=== PATIENT | male | born 1980 | race Two or more races ===

== ENCOUNTER 2024-10-25 01:55 | Emergency (ER) | payer MEDICAID, SELFPAY ==
[2024-10-25 02:08] VITALS: BP 141/95; PULSE 69; RESP 19; TEMP 36.3; O2SAT 99
--- NOTE | 2024-10-25 02:17 | PD.EDDENTL ---
ED Dental RME/HPI General Chief complaint: Dental/Oral/Throat Stated complaint: LEFT SIDE DENTAL PAIN Time Seen by Provider: 10/25/24 02:11 Source: patient Arrival date/time: 10/25/24 01:55 44-year-old male past medical history of recreational drug abuse presents emergency department complaining of left lower first molar pain since yesterday. Patient reports has not made appointment with dentist yet but plans to. Patient denies any fever, chills, sore throat, ear pain, vomiting, cough, or any other associated symptom. Mode of arrival: ambulatory Limitations: no limitations Related Data Previous Rx's ?Medication ?Instructions ?Recorded amoxicillin 875 mg-potassium 1 tab PO Q12H #14 tabs 08/19/19 clavulanate 125 mg tablet (Augmentin) ibuprofen 800 mg tablet 800 mg PO Q6H PRN pain #10 tabs 08/19/19 lorazepam 0.5 mg tablet (Ativan) 0.5 mg PO QDAY #10 tabs 08/01/21 lorazepam 1 mg tablet (Ativan) 1 mg PO QHSPRN PRN agitation/sleep 08/08/22 #10 tabs lorazepam 1 mg tablet (Ativan) 1 mg PO BID PRN agitation #10 tabs 12/10/22 IBU 800 mg tablet (ibuprofen) 800 mg PO Q6H PRN pain #30 tabs 07/20/23 pseudoephedrine HCl 30 mg tablet 30 mg PO Q12HR #14 tabs 07/20/23 (Sudafed) amoxicillin 875 mg-potassium 1 tab PO BID #14 tabs 12/25/23 clavulanate 125 mg tablet ibuprofen 800 mg tablet 800 mg PO TID PRN pain #20 tabs 12/25/23 diazepam 5 mg tablet (Valium) 5 mg PO BID PRN anxiety #7 tabs 04/02/24 hydroxyzine HCl 25 mg tablet 25 mg PO TID PRN anxiety #20 tabs 04/05/24 acetaminophen 500 mg capsule 500 mg PO Q6H PRN pain #30 caps 10/25/24 amoxicillin 875 mg-potassium 1 tab PO BID 7 days #14 tabs 10/25/24 clavulanate 125 mg tablet ibuprofen 800 mg tablet 800 mg PO TID PRN fever or pain 10/25/24 #30 tabs Allergies Allergy/AdvReac Type Severity Reaction Status Date / Time No Known Allergies Allergy Unknown Verified 04/05/24 00:08 Review of Systems Review of Systems Systems Reviewed: All systems reviewed, normal except as documented Constitutional Constitutional: Reports system reviewed and no additional complaints, except as documented, Denies body ache(s), Denies chills and Denies fever(s) Eyes Eyes: Reports system reviewed and no additional complaints, except as documented and Denies change in vision ENT Ears, Nose, Mouth, and Throat: Reports system reviewed and no additional complaints, except as documented, Denies disequilibrium, Denies dizziness, Reports mouth pain, Denies sore throat, Denies vertigo and Reports other (Dental pain) Cardiovascular Cardiovascular: Reports system reviewed and no additional complaints, except as documented, Denies chest pain and Denies dyspnea Respiratory Respiratory: Reports system reviewed and no additional complaints, except as documented, Denies chest congestion, Denies cough and Denies dyspnea Gastrointestinal Gastrointestinal: Reports system reviewed and no additional complaints, except as documented, Denies abdominal pain, Denies nausea and Denies vomiting Musculoskeletal Musculoskeletal: Reports system reviewed and no additional complaints, except as documented, Denies abnormal gait and Denies arthralgias Integumentary/Breasts Skin/Breast: Reports system reviewed and no additional complaints, except as documented, Denies erythema, Denies rash and Denies wounds Neurologic Neurologic: Reports system reviewed and no additional complaints, except as documented, Denies abnormal gait, Denies disequilibrium, Denies dizziness and Denies vertigo Past Medical History Past Medical History NEUROLOGIC: Negative Neurological Disorders CARDIAC: Negative Cardiac Disorders or Congestive Heart Failure RESPIRATORY: Negative Chronic Obstructive Pulmonary Disease (COPD) GASTROINTESTINAL: Positive Gastrointestinal Disorders and Gastroesophageal Reflux Disease GENITOURINARY: Negative Genitourinary Disorders or Renal Disease MUSCULOSKELETAL: Negative Musculoskeletal Disorders ENDOCRINE: Negative Endocrine Disorders, Diabetes Mellitus Type 1 or Diabetes Mellitus Type 2 HEMATOLOGIC: Negative Blood Disorders Social History SMOKING STATUS: Current every day smoker ED Exam General Limitations: Present no limitations General appearance: Present alert and in no apparent distress Head Head exam: Present atraumatic Eye Eye exam: Present normal appearance, PERRL and EOMI ENT ENT exam: Present normal exam, normal oropharynx and mucous membranes moist Expanded ENT Exam Teeth exam: Present dental caries and gingival swelling Teeth numbered:  1. Other (Dental caries with gingival swelling) Throat exam: Absent tonsillar erythema or tonsillomegaly Neck Neck exam: Present normal inspection, full ROM and trachea midline Chest Chest inspection: Present normal inspection and symmetric chest wall rise Respiratory Respiratory exam: Present normal lung sounds bilaterally Cardiovascular Cardiovascular exam: Present regular rate, normal rhythm and normal heart sounds Abdominal Exam Abdominal exam: Present soft and normal bowel sounds Extremities Exam Extremities exam: Present normal inspection and full ROM Back Exam Back exam: Present normal inspection and full ROM Neurological Exam Neurological exam: Present alert, oriented X3 and CN II-XII intact Psychiatric Psychiatric exam: Present normal affect and normal mood Skin Skin exam: Present warm, dry, intact and normal color Course Quality Measures none Orders Category Date Time Status HYDROcodone*/APAP 5/325 [[place] 5/325] Med 10/25/24 02:17 Discontinued 1 tab PO X1 ONE Ketorolac Inj [Toradol Inj] Med 10/25/24 02:17 Discontinued 30 mg IM X1 ONE Vital Signs Vital signs: Vital Signs Temperature 97.3 F 10/25/24 02:08 Pulse Rate 69 10/25/24 02:08 Respiratory Rate 19 10/25/24 02:08 Blood Pressure 141/95 H 10/25/24 02:08 Pulse Oximetry (%) 99 10/25/24 02:08 Oxygen Delivery Method Room Air 10/25/24 02:08 99% room air within normal limits Dental / Oral MDM Narrative MDM Narrative:: 44-year-old male past medical history of recreational drug abuse presents emergency department complaining of left lower first molar pain since yesterday. Patient reports has not made appointment with dentist yet but plans to. Patient denies any fever, chills, sore throat, ear pain, vomiting, cough, or any other associated symptom. Left lower first molar appears infected with localized gingival swelling patient has dental carry and reports has not seen a dentist in 6 months. Patient appears nontoxic and is hemodynamic stable. Patient given pain medication and discharged on oral antibiotics and instructed to follow-up with dentist within a week. Patient data External records reviewed:: [facility] previous records Clinical information provided by:: patient Social determinants that could affect healthcare access:: substance use Patient has the following chronic illnesses:: See chart How is presenting disease/condition affected by chronic disease/condition?: uneffected by Evaluation data The following diagnostics were reviewed and interpreted by me:: other (specify) (None) Lab and/or radiology exams considered but not ordered:: N/A Interpretation Summary: N/A Medications / Prescriptions Medications or Prescriptions considered but not ordered:: Ordered Medication administrations:: Medication Administration History Discontinued Medications Hydrocodone Bitart/Acetaminophen (Hydrocodone/[place] 5/325 Tablet) 1 tab PO X1 ONE Stop: 10/25/24 02:18 Last Admin: 10/25/24 02:24 Dose: 1 tab Documented By: ALEAH Ketorolac Tromethamine (Ketorolac Inj 60 Mg/2 Ml Vial) 30 mg IM X1 ONE Stop: 10/25/24 02:18 Last Admin: 10/25/24 02:25 Dose: 30 mg Documented By: ALEAH Given Consultations Consultation(s) initiated? (list below): No Diagnosis Dental Differential Diagnosis: gingival abscess, dental caries, toothache, dental abscess, fracture of tooth and aphthous ulcer Most likely diagnosis given after review of the tests above:: Infected tooth Admission Indicated Admission indicated?: not indicated Admission Request Was there a request for admission?: No Disposition Plan Disposition Plan: Discharge Discharge Attestation Discharge Attestation: The patient and all family members were given an opportunity to ask questions and understood the discharge instructions. Discharge instructions specifically effects, indications for sooner follow up or return to the emergency department, and the expected course of current diagnosis. Patient condition: Stable Discharge Plan Plan Patient Disposition: HOME (Self Care) Disposition Comment: Stable Prescriptions/Referrals Prescriptions/Med Rec: New acetaminophen 500 mg capsule 500 mg PO Q6H PRN (Reason: pain) Qty: 30 0RF amoxicillin-pot clavulanate 875-125 mg tablet 1 tab PO BID 7 Days Qty: 14 0RF ibuprofen 800 mg tablet 800 mg PO TID PRN (Reason: fever or pain) Qty: 30 0RF No Action lorazepam [Ativan] 0.5 mg tablet 0.5 mg PO QDAY Qty: 10 0RF amoxicillin-pot clavulanate [Augmentin] 875-125 mg tablet 1 tab PO Q12H Qty: 14 0RF ibuprofen 800 mg tablet 800 mg PO Q6H PRN (Reason: pain) Qty: 10 0RF hydroxyzine HCl 25 mg tablet 25 mg PO TID PRN (Reason: anxiety) Qty: 20 0RF lorazepam [Ativan] 1 mg tablet 1 mg PO QHSPRN PRN (Reason: agitation/sleep) Qty: 10 0RF lorazepam [Ativan] 1 mg tablet 1 mg PO BID PRN (Reason: agitation) Qty: 10 0RF pseudoephedrine HCl [Sudafed] 30 mg tablet 30 mg PO Q12HR Qty: 14 0RF ibuprofen [IBU] 800 mg tablet 800 mg PO Q6H PRN (Reason: pain) Qty: 30 0RF amoxicillin-pot clavulanate 875-125 mg tablet 1 tab PO BID Qty: 14 0RF ibuprofen 800 mg tablet 800 mg PO TID PRN (Reason: pain) Qty: 20 0RF diazepam [Valium] 5 mg tablet 5 mg PO BID MDD 2 PRN (Reason: anxiety) Qty: 7 0RF Problem List Clinical Impression: Infected tooth Patient/Caregiver Discharge Instructions Discharge Activity: activity as tolerated Education Materials: ED Dental Abscess Additional Instructions: Drink plenty of fluids and stay hydrated. Take ibuprofen or Tylenol as needed for pain. Take antibiotics as prescribed. Make follow-up appointment with dentist within 1 week. Follow-up with your primary care provider as well. Return to emergency department for any worsening symptoms or as needed. Print Language: Chinese Stand Alone Forms: [employer] Award Info., Patient Portal Info Letter PA/EMBEDDED ENGINEER Supervising Physician PA/EMBEDDED ENGINEER Supervising Physician: Dr. Cabral
[2024-10-25] MEDS: HYDROcodone/APAP 5/325 TABLET 1 TAB PO (02:24)
[2024-10-25] MEDS: KETOROLAC INJ 60 MG/2 ML VIAL 30 MG IM (02:25)
--- NOTE | 2024-10-25 03:38 | PC.NURSE ---
PT SEEN WALKING OUT OF ER LOBBY AND LEAVING BY STAFF
== END 2024-10-25 03:39 | disposition home or self-care (01) ==
PROVIDERS: Emergency Provider Emergency Medicine
DX: K04.7 Periapical abscess without sinus (principal); F17.200 Nicotine dependence, unspecified, uncomplicated
CPT/HCPCS: 96372; 99283; J1885; A9270

== ENCOUNTER 2025-01-30 21:20 | Emergency (ER) | payer MEDICAID, SELFPAY ==
[2025-01-30 21:21] VITALS: BMI 29.9
[2025-01-30 21:45] VITALS: BP 151/92; PULSE 102; RESP 18; TEMP 37.2; O2SAT 151
--- NOTE | 2025-01-30 22:02 | EDNOTE_ITS ---
ED Psych RME/HPI General Chief Complaint: Depression Stated Complaint: depression Time Seen by Provider: 01/30/25 22:05 Arrival date/time: 01/30/25 21:20 RME / HPI RME / HPI Narrative: This section includes all my notes and documentations, including HPI, PE, and ED course. Galo Us MD HPI: 44 y/o male with Hx of Chronic Methamphetamine use presents with racing thoughts x 2 days. Patient was in a recovery program for 3 months, then once released, began using methamphetamine again over the last 2 days. Denies self-harm or suicidal ideation. Denies visual or auditory ideation. Patient is requesting medication to aid with sleep or stress. No thoughts of hurting other people. No other complaints. ROS: All negative except as documented in HPI. Physical Exam: General: Alert and oriented. Appears anxious. Eyes: Conjunctivae and lids clear. ENT: No nasal congestion. Neck: Supple. Heart: RRR. Lungs: No respiratory distress. Good air movement. No rhonchi, wheezing, rales. Abdomen: Soft and nontender. Skin: Warm and dry. Neuro: Alert and oriented X 3. At this point, diagnoses include: Acute anxiety. Prescribe short course of Xanax and recommended more outpatient care. Based on my best medical judgment, made decision no further evaluation or treatment indicated at this time. Patient understands and agrees to the discharge instructions customized and printed, see below. Discharge Instructions from Dr. Us: 1. As you requested, Xanax was prescribed to help with your anxiety and racing thoughts. 2. You don't meet the criteria for emergency prison in psychiatric unit agai nst your will.? Because you have no thoughts of hurting yourself or others.? And there are no signs of psychosis (loss of touch with reality) which can potentially be harmful to you and others. 3. See a private doctor on 01/31/2025 for recheck and further care. Ask to help you stay healthy both physically and mentally.? And help to receive all services available to you, including referral to see mental health specialists. And ask for help to quit all drugs. 4. Seek immediate medical care (you can call 911 any time) with thoughts of hurting yourself or with any concerns. Galo Us MD Related Data Previous Rx's ?Medication ?Instructions ?Recorded amoxicillin 875 mg-potassium 1 tab PO Q12H #14 tabs clavulanate 125 mg tablet (Augmentin) ibuprofen 800 mg tablet 800 mg PO Q6H PRN pain #10 t abs 08/19/19 lorazepam 0.5 mg tablet (Ativan) 0.5 mg PO QDAY #10 ta bs 08/01/21 lorazepam 1 mg tablet (Ativan) 1 mg PO QHSPRN PRN agit ation/sleep 08/08/22 #10 tabs lorazepam 1 mg tablet (Ativan) 1 mg PO BID PRN agitati on #10 tabs 12/10/22 IBU 800 mg tablet (ibuprofen) 800 mg PO Q6H PRN pain # 30 tabs 07/20/23 pseudoephedrine HCl 30 mg tablet 30 mg PO Q12HR #14 ta bs 07/20/23 (Sudafed) amoxicillin 875 mg-potassium 1 tab PO BID #14 tabs 10/18 clavulanate 125 mg tablet ibuprofen 800 mg tablet 800 mg PO TID PRN pain #20 t abs 12/25/23 diazepam 5 mg tablet (Valium) 5 mg PO BID PRN anxiety #7 tabs 04/02/24 hydroxyzine HCl 25 mg tablet 25 mg PO TID PRN anxiety #20 tabs 04/05/24 acetaminophen 500 mg capsule 500 mg PO Q6H PRN pain #3 0 caps 10/25/24 ibuprofen 800 mg tablet 800 mg PO TID PRN fever or p ain 10/25/24 #30 tabs alprazolam 0.5 mg tablet (Xanax) 0.5 mg PO BID PRN anx iety #10 tabs 01/30/25 Allergies Allergy/AdvReac Type Severity Reaction Status Date / Time No Known Allergies Allergy Unknown Verified 04/05/24 00:08 Review of Systems Review of Systems Systems Reviewed: All systems reviewed, normal except as documented Past Medical History Past Medical History GASTROINTESTINAL: Positive Gastrointestinal Disorders and Gastroesophageal Reflux Disease Social History SMOKING STATUS: Light (< 1 pack/day) SUBSTANCE USE: methamphetamine 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 Us. Provider Notation: Although this document has been carefully reviewed, there may still be some phonetic and other typographical errors.? These errors are purely grammatical due to imperfections in the software program and should not be construed in any way to? compromise the substance of the patient's medical care during this visit. 44 y/o male with Hx of Chronic Methamphetamine use presents with racing thoughts x 2 days. Patient was in a recovery program for 3 months, then once released, began using methamphetamine again over the last 2 day. Denies self-harm or suicidal ideation. Denies visual or auditory ideation. Patient is requesting medication to aid with sleep or stress. No other complaints. Patient data External records reviewed:: [facility] previous records (Prior ED records reviewed from 10/25/24. Patient was seen for Infected tooth.) Clinical information provided by:: patient Social determinants that could affect healthcare access:: substance use (Methamphetamine) Patient has the following chronic illnesses:: GERD How is presenting disease/condition affected by chronic disease/condition?: uneffected by Evaluation data The following diagnostics were reviewed and interpreted by me:: other (specify) (N/A) Lab and/or radiology exams considered but not ordered:: None Interpretation Summary: N/A Medications / Prescriptions Medications or Prescriptions considered but not ordered:: None Medication administrations:: N/A Consultations Consultation(s) initiated? (list below): No Diagnosis Psych Differential Diagnosis: acute psychosis, suicidal ideation, bipolar disorder, depression, drug-induced psychotic disorder and acute anxiety Most likely diagnosis given after review of the tests above:: Acute anxiety Admission Indicated Admission indicated?: not indicated Explain why admission is indicated or not indicated:: Without severe condition, there is no indication for admission. Admission Request Was there a request for admission?: No Disposition Plan Disposition Plan: Discharge Discharge Attestation Discharge Attestation: The patient and all family members were given an opportunity to ask questions and understood the discharge instructions. Discharge instructions specifically effects, indications for sooner follow up or return to the emergency department, and the expected course of current diagnosis. Patient condition: Stable Discharge Plan Plan Patient Disposition: HOME (Self Care) Prescriptions/Referrals Prescriptions/Med Rec: New alprazolam [Xanax] 0.5 mg tablet 0.5 mg PO BID PRN (Reason: anxiety) Qty: 10 0RF No Action lorazepam [Ativan] 0.5 mg tablet 0.5 mg PO QDAY Qty: 10 0RF amoxicillin-pot clavulanate [Augmentin] 875-125 mg tablet 1 tab PO Q12H Qty: 14 0RF ibuprofen 800 mg tablet 800 mg PO Q6H PRN (Reason: pain) Qty: 10 0RF hydroxyzine HCl 25 mg tablet 25 mg PO TID PRN (Reason: anxiety) Qty: 20 0RF acetaminophen 500 mg capsule 500 mg PO Q6H PRN (Reason: pain) Qty: 30 0RF ibuprofen 800 mg tablet 800 mg PO TID PRN (Reason: fever or pain) Qty: 30 0RF lorazepam [Ativan] 1 mg tablet 1 mg PO QHSPRN PRN (Reason: agitation/sleep) Qty: 10 0RF lorazepam [Ativan] 1 mg tablet 1 mg PO BID PRN (Reason: agitation) Qty: 10 0RF pseudoephedrine HCl [Sudafed] 30 mg tablet 30 mg PO Q12HR Qty: 14 0RF ibuprofen [IBU] 800 mg tablet 800 mg PO Q6H PRN (Reason: pain) Qty: 30 0RF amoxicillin-pot clavulanate 875-125 mg tablet 1 tab PO BID Qty: 14 0RF ibuprofen 800 mg tablet 800 mg PO TID PRN (Reason: pain) Qty: 20 0RF diazepam [Valium] 5 mg tablet 5 mg PO BID MDD 2 PRN (Reason: anxiety) Qty: 7 0RF Problem List Clinical Impression: Acute anxiety Patient/Caregiver Discharge Instructions Discharge Activity: activity as tolerated Education Materials: ED Anxiety Reaction, ED Drug Abuse Additional Instructions: Discharge Instructions from Dr. Us: 1. As you requested, Xanax was prescribed to help with your anxiety and racing thoughts. 2. You don't meet the criteria for emergency prison in psychiatric unit against your will.? Because you have no thoughts of hurting yourself or others.? And there are no signs of psychosis (loss of touch with reality) which can potentially be harmful to you and others. 3. See a private doctor on 01/31/2025 for recheck and further care. Ask to help you stay healthy both physically and mentally.? And help to receive all services available to you, including referral to see mental health specialists. And ask for help to quit all drugs. 4. Seek immediate medical care (you can call 911 any time) with thoughts of hurting yourself or with any concerns. Print Language: Tajik Stand Alone Forms: [employer] Award Info., Patient Portal Info Letter
== END 2025-01-30 22:13 | disposition home or self-care (01) ==
PROVIDERS: Emergency Provider Emergency Medicine
DX: F41.9 Anxiety disorder, unspecified (principal)
CPT/HCPCS: 99281

== ENCOUNTER 2025-02-04 07:26 | Emergency (ER) | payer MEDICAID, SELFPAY ==
[2025-02-04 07:36] VITALS: BP 128/83; PULSE 88; RESP 16; TEMP 36.7; O2SAT 99; BMI 29.1
--- NOTE | 2025-02-04 07:42 | EDNOTE_ITS ---
ED Dental RME/HPI General Chief complaint: Dental/Oral/Throat Stated complaint: GUM SWELLING Time Seen by Provider: 02/04/25 07:34 Source: patient Arrival date/time: 02/04/25 07:26 This is a case of a 44-year-old male who came in in the emergency room due to left lower dental pain for 2 days patient states that worsening of the symptoms this he decided to start consult here in the emergency room no drooling of saliva patient is able to open and close his mouth Limitations: no limitations Related Data Previous Rx's ?Medication ?Instructions ?Recorded amoxicillin 875 mg-potassium 1 tab PO Q12H #14 tabs clavulanate 125 mg tablet (Augmentin) ibuprofen 800 mg tablet 800 mg PO Q6H PRN pain #10 t abs 08/19/19 lorazepam 0.5 mg tablet (Ativan) 0.5 mg PO QDAY #10 ta bs 08/01/21 lorazepam 1 mg tablet (Ativan) 1 mg PO QHSPRN PRN agit ation/sleep 08/08/22 #10 tabs lorazepam 1 mg tablet (Ativan) 1 mg PO BID PRN agitati on #10 tabs 12/10/22 IBU 800 mg tablet (ibuprofen) 800 mg PO Q6H PRN pain # 30 tabs 07/20/23 pseudoephedrine HCl 30 mg tablet 30 mg PO Q12HR #14 ta bs 07/20/23 (Sudafed) amoxicillin 875 mg-potassium 1 tab PO BID #14 tabs 10/18 clavulanate 125 mg tablet ibuprofen 800 mg tablet 800 mg PO TID PRN pain #20 t abs 12/25/23 diazepam 5 mg tablet (Valium) 5 mg PO BID PRN anxiety #7 tabs 04/02/24 hydroxyzine HCl 25 mg tablet 25 mg PO TID PRN anxiety #20 tabs 04/05/24 acetaminophen 500 mg capsule 500 mg PO Q6H PRN pain #3 0 caps 10/25/24 ibuprofen 800 mg tablet 800 mg PO TID PRN fever or p ain 10/25/24 #30 tabs alprazolam 0.5 mg tablet (Xanax) 0.5 mg PO BID PRN anx iety #10 tabs 01/30/25 clindamycin HCl 300 mg capsule 300 mg PO Q6H 10 days # 40 caps 02/04/25 hydrocodone 5 mg-acetaminophen 325 1 tab PO Q6H PRN pa in #10 tabs 02/04/25 mg tablet Allergies Allergy/AdvReac Type Severity Reaction Status Date / Time No Known Allergies Allergy Unknown Verified 04/05/24 00:08 Review of Systems Review of Systems Systems Reviewed: All systems reviewed, normal except as documented Constitutional Constitutional: Reports system reviewed and no additional complaints, except as documented, Denies chills, Denies fever(s) and Denies headache(s) ENT Ears, Nose, Mouth, and Throat: Reports system reviewed and no additional complaints, except as documented, Reports as per HPI, Denies bleeding gums, Denies change in voice, Reports dental pain, Denies dizziness, Denies dry mouth, Denies dysphagia, Denies ear discharge, Denies otalgia, Denies epistaxis, Denies facial pain, Denies headache(s), Denies hoarseness, Denies lip swelling, Denies mouth lesions, Denies nasal discharge, Denies nasal obstruction, Denies neck pain, Denies nose pain, Denies odynophagia, Denies post nasal drip, Denies sore throat, Denies throat swelling and Denies tongue swelling Cardiovascular Cardiovascular: Reports system reviewed and no additional complaints, except as documented Respiratory Respiratory: Reports system reviewed and no additional complaints, except as documented Gastrointestinal Gastrointestinal: Reports system reviewed and no additional complaints, except as documented, Denies dysphagia and Denies odynophagia Musculoskeletal Musculoskeletal: Reports system reviewed and no additional complaints, except as documented and Denies neck pain Neurologic Neurologic: Reports system reviewed and no additional complaints, except as documented, Denies dizziness and Denies headache(s) Allergic/Immunologic Allergic/Immunologic: Denies lip swelling, Denies throat swelling and Denies tongue swelling Past Medical History Past Medical History NEUROLOGIC: Negative Neurological Disorders CARDIAC: Negative Cardiac Disorders or Congestive Heart Failure RESPIRATORY: Negative Chronic Obstructive Pulmonary Disease (COPD) GASTROINTESTINAL: Positive Gastrointestinal Disorders and Gastroesophageal Reflux Disease GENITOURINARY: Negative Genitourinary Disorders or Renal Disease MUSCULOSKELETAL: Negative Musculoskeletal Disorders ENDOCRINE: Negative Endocrine Disorders, Diabetes Mellitus Type 1 or Diabetes Mellitus Type 2 HEMATOLOGIC: Negative Blood Disorders Social History SMOKING STATUS: Never smoker SUBSTANCE USE: methamphetamine ED Exam General Limitations: Present no limitations General appearance: Present alert and in no apparent distress Head Head exam: Present atraumatic, normocephalic and normal inspection Eye Eye exam: Present normal appearance, PERRL and EOMI ENT ENT exam: Present normal exam, normal oropharynx and mucous membranes moist Expanded ENT Exam Teeth numbered: 2 1. Dental Tenderness (Noted a missing tooth with swelling gum tenderness on palpation no fluctuance nonindurated) 2. Fractured (Fractured tooth tooth #17 tenderness on palpation) and Other (No mandibular tenderness swelling or redness no facial cellulitis with noted dental caries) Throat exam: Present other (No drooling of saliva patient can speak full in sentences no tenderness on jaw no swelling no redness) Neck Neck exam: Present normal inspection, full ROM and trachea midline; Absent tenderness, meningismus or lymphadenopathy Chest Chest inspection: Present normal inspection and symmetric chest wall rise Respiratory Respiratory exam: Present normal lung sounds bilaterally Cardiovascular Cardiovascular exam: Present regular rate, normal rhythm and normal heart sounds Abdominal Exam Abdominal exam: Present soft and normal bowel sounds Extremities Exam Extremities exam: Present normal inspection and full ROM Back Exam Back exam: Present normal inspection and full ROM Neurological Exam Neurological exam: Present alert, oriented X3, CN II-XII intact, normal gait and reflexes normal; Absent motor sensory deficit Psychiatric Psychiatric exam: Present normal affect and normal mood Skin Skin exam: Present warm, dry, intact and normal color Course Quality Measures none Vital Signs Vital signs: Vital Signs Temperature 98.1 F 02/04/25 07:36 Pulse Rate 88 02/04/25 07:36 Respiratory Rate 16 02/04/25 07:36 Blood Pressure 128/83 02/04/25 07:36 Pulse Oximetry (%) 99 02/04/25 07:36 Oxygen Delivery Method Room Air 02/04/25 07:36 Patient is afebrile not tachycardic not tachypneic not hypoxic oxygen saturation is 99% on room air normal Dental / Oral MDM Narrative MDM Narrative:: This is a case of a 44-year-old male who came in with in the emergency room with left lower dental pain physical examination patient is awake alert oriented not in distress nontoxic looking noted a tenderness and missing tooth with gum swelling redness no fluctuance nonindurated with fractured tooth and and dental caries noted jaw or mandibular tenderness or redness or cellulitis based on the physical examination and history patient symptoms suggestive of dental abscess and fractured tooth patient will be discharged home in stable condition patient was prescribed clindamycin and [place] for pain patient was advised to follow-up with the primary care physician for reevaluation and to see dentist as soon as possible for possible dental procedure Patient was discharged with comfortable condition walking with stable gait. Patient verbalized no further complains explained diagnosis and answered patient question. Patient is comfortable with the proposed management plan including the need to follow up with his/her primary care physician and any specialist if applicable Discussed patient for any urgent condition or worsening sx, He/She needed to go to emergency room immediately or call 911. Patient acknowledge the responsibility to follow up as instructed and to monitor her/his symptoms. For any persistence of the symptoms for more than 3-5 days return precaution advised. Discussed the result of the test and was given printed discharge instruction Patient data External records reviewed:: [facility] previous records Clinical information provided by:: none Social determinants that could affect healthcare access:: none Patient has the following chronic illnesses:: none How is presenting disease/condition affected by chronic disease/condition?: no chronic disease Evaluation data The following diagnostics were reviewed and interpreted by me:: other (specify) Lab and/or radiology exams considered but not ordered:: None Interpretation Summary: None Medications / Prescriptions Medications or Prescriptions considered but not ordered:: Given Medication administrations:: Given Consultations Consultation(s) initiated? (list below): No Diagnosis Dental Differential Diagnosis: dental caries, toothache, dental abscess and fracture of tooth Most likely diagnosis given after review of the tests above:: Dental abscess Admission Indicated Admission indicated?: not indicated Explain why admission is indicated or not indicated:: Not indicated Admission Request Was there a request for admission?: No Admission Attestation Admission request attestation: Not indicated Disposition Plan Disposition Plan: Discharge Discharge Attestation Discharge Attestation: The patient and all family members were given an opportunity to ask questions and understood the discharge instructions. Discharge instructions specifically effects, indications for sooner follow up or return to the emergency department, and the expected course of current diagnosis. Patient condition: Stable Discharge Plan Plan Patient Disposition: HOME (Self Care) Patient condition on transfer: Stable Prescriptions/Referrals Prescriptions/Med Rec: New clindamycin HCl 300 mg capsule 300 mg PO Q6H 10 Days Qty: 40 0RF hydrocodone-acetaminophen 5-325 mg tablet 1 tab PO Q6H MDD 4 tabs per day PRN (Reason: pain) Qty: 10 0RF No Action lorazepam [Ativan] 0.5 mg tablet 0.5 mg PO QDAY Qty: 10 0RF amoxicillin-pot clavulanate [Augmentin] 875-125 mg tablet 1 tab PO Q12H Qty: 14 0RF ibuprofen 800 mg tablet 800 mg PO Q6H PRN (Reason: pain) Qty: 10 0RF hydroxyzine HCl 25 mg tablet 25 mg PO TID PRN (Reason: anxiety) Qty: 20 0RF acetaminophen 500 mg capsule 500 mg PO Q6H PRN (Reason: pain) Qty: 30 0RF ibuprofen 800 mg tablet 800 mg PO TID PRN (Reason: fever or pain) Qty: 30 0RF lorazepam [Ativan] 1 mg tablet 1 mg PO QHSPRN PRN (Reason: agitation/sleep) Qty: 10 0RF lorazepam [Ativan] 1 mg tablet 1 mg PO BID PRN (Reason: agitation) Qty: 10 0RF pseudoephedrine HCl [Sudafed] 30 mg tablet 30 mg PO Q12HR Qty: 14 0RF ibuprofen [IBU] 800 mg tablet 800 mg PO Q6H PRN (Reason: pain) Qty: 30 0RF amoxicillin-pot clavulanate 875-125 mg tablet 1 tab PO BID Qty: 14 0RF ibuprofen 800 mg tablet 800 mg PO TID PRN (Reason: pain) Qty: 20 0RF diazepam [Valium] 5 mg tablet 5 mg PO BID MDD 2 PRN (Reason: anxiety) Qty: 7 0RF alprazolam [Xanax] 0.5 mg tablet 0.5 mg PO BID PRN (Reason: anxiety) Qty: 10 0RF Problem List Clinical Impression: Tooth ache, Dental abscess Patient/Caregiver Discharge Instructions Education Materials: Dental Abscess, ED Abscess Antibiotic ..., ED Dental Abscess Additional Instructions: Follow-up with your primary care physician in 2 days for reevaluation for any worsening symptoms or any emergent concern return to the emergency room immediately or call 911 it is not very important to finish your antibiotic and very important to see your dentist for reevaluation and possible dental procedure Print Language: Gambian Stand Alone Forms: [facility] Award Info., Patient Portal Info Letter PA/[employer]ENT[employer] Supervising Physician PA/[employer] Supervising Physician: DR zabala
== END 2025-02-04 08:00 | disposition home or self-care (01) ==
LOC: SERX 07:48
PROVIDERS: Emergency Provider Emergency Medicine
DX: K04.7 Periapical abscess without sinus (principal)
CPT/HCPCS: 99281

== ENCOUNTER 2025-02-05 12:29 | Emergency (ER) | payer MEDICAID, SELFPAY ==
[2025-02-05 12:57] VITALS: BP 121/80; PULSE 91; RESP 18; TEMP 36.7; O2SAT 98; BMI 29.2
--- NOTE | 2025-02-05 13:04 | XR_ITS ---
Examination left hand 2 views Technique: AP lateral Left hand two views Time: 02/055, 1327 hours Findings: No fracture or dislocation. No foreign body Impression: No fracture or dislocation
--- NOTE | 2025-02-05 13:06 | EDNOTE_ITS ---
Upper Extremity Injury RME/HPI General Chief Complaint: Hand/Wrist Problems Stated Complaint: Left hand swelling today Time Seen by Provider: 02/05/25 12:36 Arrival date/time: 02/05/25 12:29 RME / HPI RME / HPI narrative: 44-year-old male patient came in for evaluation regarding left dorsal hand swelling. Patient woke up with swelling to the left dorsal hand, associated with discomfort. Denies any redness. Patient also complaining of mild infraorbital edema. Denies any shortness of breath denies any other complaints. No medications taken prior travel. Related Data Previous Rx's ?Medication ?Instructions ?Recorded amoxicillin 875 mg-potassium 1 tab PO Q12H #14 tabs clavulanate 125 mg tablet (Augmentin) ibuprofen 800 mg tablet 800 mg PO Q6H PRN pain #10 t abs 08/19/19 lorazepam 0.5 mg tablet (Ativan) 0.5 mg PO QDAY #10 ta bs 08/01/21 lorazepam 1 mg tablet (Ativan) 1 mg PO QHSPRN PRN agit ation/sleep 08/08/22 #10 tabs lorazepam 1 mg tablet (Ativan) 1 mg PO BID PRN agitati on #10 tabs 12/10/22 IBU 800 mg tablet (ibuprofen) 800 mg PO Q6H PRN pain # 30 tabs 07/20/23 pseudoephedrine HCl 30 mg tablet 30 mg PO Q12HR #14 ta bs 07/20/23 (Sudafed) amoxicillin 875 mg-potassium 1 tab PO BID #14 tabs 10/18 clavulanate 125 mg tablet ibuprofen 800 mg tablet 800 mg PO TID PRN pain #20 t abs 12/25/23 diazepam 5 mg tablet (Valium) 5 mg PO BID PRN anxiety #7 tabs 04/02/24 hydroxyzine HCl 25 mg tablet 25 mg PO TID PRN anxiety #20 tabs 04/05/24 acetaminophen 500 mg capsule 500 mg PO Q6H PRN pain #3 0 caps 10/25/24 ibuprofen 800 mg tablet 800 mg PO TID PRN fever or p ain 10/25/24 #30 tabs alprazolam 0.5 mg tablet (Xanax) 0.5 mg PO BID PRN anx iety #10 tabs 01/30/25 clindamycin HCl 300 mg capsule 300 mg PO Q6H 10 days # 40 caps 02/04/25 hydrocodone 5 mg-acetaminophen 325 1 tab PO Q6H PRN pa in #10 tabs 02/04/25 mg tablet Allergies Allergy/AdvReac Type Severity Reaction Status Date / Time No Known Allergies Allergy Unknown Verified 02/05/25 12:35 Review of Systems Review of Systems Narrative Review of Systems: Review of system reviewed and within normal limits except mentioned in HPI ED Exam Narrative Physical exam: VITAL SIGNS: Reviewed. GENERAL APPEARANCE: Alert and interactive, follows commands, no acute distress, HEAD AND FACE: Non-traumatic. ENT: PERRL, pink conjunctivitis, eyelid no trauma, Mucous membrane moist., Mild periorbital edema NECK: Supple, nontender, no nuchal rigidity. CHEST: No tenderness, no crepitus, no paradoxical movement, no retractions. LUNGS: Clear, well ventilated, symmetric, no rales, no wheezing, no ronchi, no stridor, good breath sounds bilaterally. HEART: Regular rate, regular rhythm, no murmur, no gallops. ABDOMEN: Soft, positive bowel sounds, nondistended, no guarding, nontender, no rebound, no masses, RECTAL: Deferred. GENITAL: Deferred. NEUROLOGICAL: Gross motor function intact sensory function intact, Appropriate for age. MUSCULOSKELETAL: low back nontender, full range of motion. EXTREMITIES: Left hand swelling dorsal aspect, full range of motion of the fingers, no redness slightly tender, full range of motion. No tenderness of the forearm and arm, no swelling of the forearm and arm SKIN: Color pink, dry, no rash, no lacerations, no abrasions, no contusions. LYMPHATICS: Deferred. Course Quality Measures none Orders Category Date Time Status XR hand LT 2V Stat Exams 02/05/25 13:04 Completed CBC [CBC] Stat Lab 02/05/25 13:10 Completed CMP [Comprehensive Metabolic Panel] Stat Lab 02/05/25 13:10 Completed Vital Signs Vital signs: Vital Signs Temperature 98.1 F 02/05/25 12:57 Pulse Rate 91 02/05/25 12:57 Respiratory Rate 18 02/05/25 12:57 Blood Pressure 121/80 02/05/25 12:57 Pulse Oximetry (%) 98 02/05/25 12:57 Oxygen Delivery Method Room Air 02/05/25 12:57 Extremity Injury MDM Narrative MDM Narrative:: 44-year-old male patient came in for evaluation regarding left dorsal hand swelling. Patient woke up with swelling to the left dorsal hand, associated with discomfort. Denies any redness. Patient also complaining of mild infraorbital edema. Denies any shortness of breath denies any other complaints. No medications taken prior travel. Patient eloped from the emergency room Patient data External records reviewed:: None Clinical information provided by:: patient Social determinants that could affect healthcare access:: none Patient has the following chronic illnesses:: None How is presenting disease/condition affected by chronic disease/condition?: no chronic disease Evaluation data The following diagnostics were reviewed and interpreted by me:: lab results and radiology exam(s) Lab and/or radiology exams considered but not ordered:: None Interpretation Summary: Laboratory workup all came back unremarkable no leukocytosis noted, CMP unremarkable, x-ray of the hand came back normal. Medications / Prescriptions Medications or Prescriptions considered but not ordered:: None Medication administrations:: None Consultations Consultation(s) initiated? (list below): No Diagnosis Upper Extremity Injury Differential Diagnosis: other (Hand pain, arthritis of the hand, fracture of the hand) Most likely diagnosis given after review of the tests above:: hAnd pain Admission Indicated Admission indicated?: not indicated Admission Request Was there a request for admission?: No Disposition Plan Disposition Plan: other (specify) (Elopement) Discharge Plan Plan Patient Disposition: Elopement Prescriptions/Referrals Prescriptions/Med Rec: No Action lorazepam [Ativan] 0.5 mg tablet 0.5 mg PO QDAY Qty: 10 0RF amoxicillin-pot clavulanate [Augmentin] 875-125 mg tablet 1 tab PO Q12H Qty: 14 0RF ibuprofen 800 mg tablet 800 mg PO Q6H PRN (Reason: pain) Qty: 10 0RF hydroxyzine HCl 25 mg tablet 25 mg PO TID PRN (Reason: anxiety) Qty: 20 0RF acetaminophen 500 mg capsule 500 mg PO Q6H PRN (Reason: pain) Qty: 30 0RF ibuprofen 800 mg tablet 800 mg PO TID PRN (Reason: fever or pain) Qty: 30 0RF lorazepam [Ativan] 1 mg tablet 1 mg PO QHSPRN PRN (Reason: agitation/sleep) Qty: 10 0RF lorazepam [Ativan] 1 mg tablet 1 mg PO BID PRN (Reason: agitation) Qty: 10 0RF pseudoephedrine HCl [Sudafed] 30 mg tablet 30 mg PO Q12HR Qty: 14 0RF ibuprofen [IBU] 800 mg tablet 800 mg PO Q6H PRN (Reason: pain) Qty: 30 0RF amoxicillin-pot clavulanate 875-125 mg tablet 1 tab PO BID Qty: 14 0RF ibuprofen 800 mg tablet 800 mg PO TID PRN (Reason: pain) Qty: 20 0RF diazepam [Valium] 5 mg tablet 5 mg PO BID MDD 2 PRN (Reason: anxiety) Qty: 7 0RF alprazolam [Xanax] 0.5 mg tablet 0.5 mg PO BID PRN (Reason: anxiety) Qty: 10 0RF clindamycin HCl 300 mg capsule 300 mg PO Q6H 10 Days Qty: 40 0RF hydrocodone-acetaminophen 5-325 mg tablet 1 tab PO Q6H MDD 4 tabs per day PRN (Reason: pain) Qty: 10 0RF Referrals: No Primary/Family,Physician [Primary Care Provider] - In 1 week Problem List Clinical Impression: Hand pain Patient/Caregiver Discharge Instructions Print Language: Persian
[2025-02-05 13:27] LABS: Basophils % (Auto) 0 % (0-2.5); Eosinophils # (Auto) 0.4 Thou/mm3 (0.0-0.5); Eosinophils % (Auto) 7 % (0-10); Hemoglobin 13.1 g/dL (13.5-16.0); Immature Granulocytes % (Auto) 0 % (0-0); Immature Granulocytes Auto 0.02 Thou/mm3 (0.00-0.00); Lymphocytes # (Auto) 2.2 Thou/mm3 (1.0-4.8); Lymphocytes % (Auto) 38 % (10-50); Mean Corpuscular HGB Conc 34.5 g/dl (31.0-37.0); Mean Corpuscular Hemoglobin 30.4 pg (25.0-35.0); Mean Corpuscular Volume 88 fL (80-100); Monocytes # (Auto) 0.7 Thou/mm3 (0.0-0.8); Monocytes % (Auto) 12 % (0-12); Neutrophils # (Auto) 2.5 Thou/mm3 (1.8-7.7); Neutrophils % (Auto) 42 % (37-80); Nucleated Red Blood Cell % 0 /100 WBC (0); Platelet Count 305 Thou/mm3 (140-440); RDW Standard Deviation 43.5 fL (35.1-43.9); Red Blood Count 4.31 Miln/mm3 (4.50-5.90); White Blood Count 5.9 Thou/mm3 (3.8-10.6)
[2025-02-05 13:46] LABS: Alanine Aminotransferase 42 U/L (10-49); Albumin, Serum 4.3 gm/dL (3.5-5.0); Albumin/Globulin Ratio 1.5 (1.2-2.2); Alkaline Phosphatase 83 U/L (46-116); Anion Gap 11 (7-16); Aspartate Amino Transferase 37 U/L (0-34); BUN/Creatinine Ratio 20 Ratio (12-20); Bilirubin,Total 0.3 mg/dL (0.3-1.2); Blood Urea Nitrogen 16 mg/dL (9-23); Calcium 9.2 mg/dL (8.3-10.6); Calcium (Corrected) 9.2 mg/dL (8.5-10.1); Carbon Dioxide 28.5 mMol/L (20.0-31.0); Chloride 104 mMol/L (98-107); Creatinine (Component) 0.8 mg/dL (0.6-1.3); Estimated Creatinine Clearance 138.8 mL/min (>60); Globulin 2.8 gm/dL (2.3-3.5); Glucose 98 mg/dL (74-106); Osmolality,Calculated 286 (275-295); Potassium 3.9 mMol/L (3.4-5.1); Sodium 143 mMol/L (136-145); Total Protein 7.1 gm/dL (5.7-8.2); eGFR > 60 See Note
--- NOTE | 2025-02-05 19:33 | PC.NURSE ---
PT NO ANSWER AT ER LOBBY OR OUTSIDE ER TO BE RE EVALUATED. PT WAS CALLED AT 1526 AND NO ANSWER THAT TIME.
== END 2025-02-05 19:35 | disposition left against medical advice (07) ==
LOC: SERX 13:38
PROVIDERS: Nurse Practitioner Family; Emergency Provider Licensed Practical Nurse
DX: M79.642 Pain in left hand (principal)
CPT/HCPCS: 36415; 73120; 80053; 85025; 99281

== ENCOUNTER 2025-03-19 05:46 | Emergency (ER) | payer MEDICAID, SELFPAY ==
[2025-03-19 06:04] VITALS: BP 123/84; PULSE 96; RESP 18; TEMP 36.9; O2SAT 100
--- NOTE | 2025-03-19 06:22 | EDNOTE_ITS ---
ED Anxiety RME/HPI General Chief Complaint: Anxiety Stated Complaint: ANXIOUS Time Seen by Provider: 03/19/25 06:12 Arrival date/time: 03/19/25 05:46 44-year-old male presents emergency department today for complaints of anxiety. 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 Currently patient reports no suicidal or homicidal ideation patient reports no chest pain no shortness breath no headache dizziness weakness Limitations: no limitations Related Data Previous Rx's ?Medication ?Instructions ?Recorded amoxicillin 875 mg-potassium 1 tab PO Q12H #14 tabs clavulanate 125 mg tablet (Augmentin) ibuprofen 800 mg tablet 800 mg PO Q6H PRN pain #10 t abs 08/19/19 lorazepam 0.5 mg tablet (Ativan) 0.5 mg PO QDAY #10 ta bs 08/01/21 lorazepam 1 mg tablet (Ativan) 1 mg PO QHSPRN PRN agit ation/sleep 08/08/22 #10 tabs lorazepam 1 mg tablet (Ativan) 1 mg PO BID PRN agitati on #10 tabs 12/10/22 IBU 800 mg tablet (ibuprofen) 800 mg PO Q6H PRN pain # 30 tabs 07/20/23 pseudoephedrine HCl 30 mg tablet 30 mg PO Q12HR #14 ta bs 07/20/23 (Sudafed) amoxicillin 875 mg-potassium 1 tab PO BID #14 tabs 10/18 clavulanate 125 mg tablet ibuprofen 800 mg tablet 800 mg PO TID PRN pain #20 t abs 12/25/23 diazepam 5 mg tablet (Valium) 5 mg PO BID PRN anxiety #7 tabs 04/02/24 hydroxyzine HCl 25 mg tablet 25 mg PO TID PRN anxiety #20 tabs 04/05/24 acetaminophen 500 mg capsule 500 mg PO Q6H PRN pain #3 0 caps 10/25/24 ibuprofen 800 mg tablet 800 mg PO TID PRN fever or p ain 10/25/24 #30 tabs alprazolam 0.5 mg tablet (Xanax) 0.5 mg PO BID PRN anx iety #10 tabs 01/30/25 hydrocodone 5 mg-acetaminophen 325 1 tab PO Q6H PRN pa in #10 tabs 02/04/25 mg tablet hydroxyzine HCl 50 mg tablet 50 mg PO TID PRN nausea a nd 03/19/25 vomiting #30 tabs Allergies Allergy/AdvReac Type Severity Reaction Status Date / Time No Known Allergies Allergy Unknown Verified 03/19/25 05:47 Review of Systems Review of Systems Systems Reviewed: All systems reviewed, normal except as documented Constitutional Constitutional: Reports system reviewed and no additional complaints, except as documented, Denies fever(s) and Denies headache(s) Eyes Eyes: Reports system reviewed and no additional complaints, except as documented and Denies blurry vision ENT Ears, Nose, Mouth, and Throat: Reports system reviewed and no additional complaints, except as documented, Denies headache(s), Denies nasal congestion and Denies nasal discharge Cardiovascular Cardiovascular: Reports system reviewed and no additional complaints, except as documented, Denies chest pain and Denies dyspnea Respiratory Respiratory: Reports system reviewed and no additional complaints, except as documented, Denies chest congestion, Denies cough and Denies dyspnea Gastrointestinal Gastrointestinal: Reports system reviewed and no additional complaints, except as documented and Denies abdominal pain Integumentary/Breasts Skin/Breast: Reports system reviewed and no additional complaints, except as documented and Denies rash Neurologic Neurologic: Reports system reviewed and no additional complaints, except as documented, Reports as per HPI and Denies headache(s) Psychiatric Psychiatric: Reports system reviewed and no additional complaints, except as documented, Reports anxiety, Denies homicidal ideation, Denies hopelessness, Denies suicidal ideation, Denies tactile hallucinations and Denies visual hallucinations Past Medical History Past Medical History NEUROLOGIC: Negative Neurological Disorders CARDIAC: Negative Cardiac Disorders or Congestive Heart Failure RESPIRATORY: Negative Chronic Obstructive Pulmonary Disease (COPD) GASTROINTESTINAL: Positive Gastrointestinal Disorders and Gastroesophageal Reflux Disease GENITOURINARY: Negative Genitourinary Disorders or Renal Disease MUSCULOSKELETAL: Negative Musculoskeletal Disorders ENDOCRINE: Negative Endocrine Disorders, Diabetes Mellitus Type 1 or Diabetes Mellitus Type 2 HEMATOLOGIC: Negative Blood Disorders Social History SMOKING STATUS: Current every day smoker SUBSTANCE USE: methamphetamine ED Exam General Limitations: Present no limitations General appearance: Present alert and in no apparent distress Head Head exam: Present atraumatic, normocephalic and normal inspection Eye Eye exam: Present normal appearance, PERRL and EOMI; Absent conjunctival injection ENT ENT exam: Present normal exam, normal oropharynx and mucous membranes moist Neck Neck exam: Present normal inspection, full ROM and trachea midline Chest Chest inspection: Present normal inspection and symmetric chest wall rise Respiratory Respiratory exam: Present normal lung sounds bilaterally; Absent respiratory distress Cardiovascular Cardiovascular exam: Present regular rate, normal rhythm and normal heart sounds; Absent bradycardia, tachycardia or irregular rhythm Abdominal Exam Abdominal exam: Present soft and normal bowel sounds Extremities Exam Extremities exam: Present normal inspection and full ROM Back Exam Back exam: Present normal inspection and full ROM Neurological Exam Neurological exam: Present alert, oriented X3, CN II-XII intact, normal gait and reflexes normal; Absent motor sensory deficit Psychiatric Psychiatric exam: Present normal affect and normal mood; Absent agitated, anxious, flat affect, manic, homicidal ideation or suicidal ideation Skin Skin exam: Present warm, dry, intact and normal color Course Quality Measures none Orders Category Date Time Status hydrOXYzine HCL [Atarax] Med 03/19/25 06:18 Discontinued 25 mg PO X1 ONE Vital Signs Vital signs: Vital Signs Temperature 98.4 F 03/19/25 06:04 Pulse Rate 96 03/19/25 06:04 Respiratory Rate 18 03/19/25 06:04 Blood Pressure 123/84 03/19/25 06:04 Pulse Oximetry (%) 100 03/19/25 06:04 Oxygen Delivery Method Room Air 03/19/25 06:04 O2 saturation 100% on room air within normal limits Anxiety MDM Narrative MDM Narrative: 44-year-old male presents emergency department today for complaints of anxiety. 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 Currently patient reports no suicidal or homicidal ideation patient reports no chest pain no shortness breath no headache dizziness weakness On exam patient well-appearing patient does not appear ill or toxic no acute distress On exam hemodynamically stable patient speaks clearly denies any acute intoxication Patient given a dose of hydroxyzine here discharged home with hydroxyzine Explained to patient needs to follow-up with mental health and primary care doctor for further treatment of his anxiety and depression For emergent concerns patient is instructed return immediately for further evaluation Patient data External records reviewed:: [facility] previous records Clinical information provided by:: patient Social determinants that could affect healthcare access:: substance use Patient has the following chronic illnesses:: History of substance abuse How is presenting disease/condition affected by chronic disease/condition?: exacerbated by Evaluation data The following diagnostics were reviewed and interpreted by me:: other (specify) (N/A) Lab and/or radiology exams considered but not ordered:: Consider not ordered Interpretation Summary: N/A Medications / Prescriptions Medications or Prescriptions considered but not ordered:: Given Medication administrations:: Medication Administration History Discontinued Medications Hydroxyzine HCl (Hydroxyzine Hcl 25 Mg Tablet) 25 mg PO X1 ONE Stop: 03/19/25 06:19 Consultations Consultation(s) initiated? (list below): No Diagnosis Differential diagnosis anxiety: hyperventilation, panic disorder and acute anxiety Most likely diagnosis given after review of the tests above:: Anxiety Admission Indicated Admission indicated?: not indicated Admission Request Was there a request for admission?: No Disposition Plan Disposition Plan: Discharge Discharge Attestation Discharge Attestation: The patient and all family members were given an opportunity to ask questions and understood the discharge instructions. Discharge instructions specifically effects, indications for sooner follow up or return to the emergency department, and the expected course of current diagnosis. Patient condition: Stable Discharge Plan Plan Patient Disposition: HOME (Self Care) Discharge Disposition comment: stable Prescriptions/Referrals Prescriptions/Med Rec: New hydroxyzine HCl 50 mg tablet 50 mg PO TID PRN (Reason: nausea and vomiting) Qty: 30 0RF No Action lorazepam [Ativan] 0.5 mg tablet 0.5 mg PO QDAY Qty: 10 0RF amoxicillin-pot clavulanate [Augmentin] 875-125 mg tablet 1 tab PO Q12H Qty: 14 0RF ibuprofen 800 mg tablet 800 mg PO Q6H PRN (Reason: pain) Qty: 10 0RF hydroxyzine HCl 25 mg tablet 25 mg PO TID PRN (Reason: anxiety) Qty: 20 0RF acetaminophen 500 mg capsule 500 mg PO Q6H PRN (Reason: pain) Qty: 30 0RF ibuprofen 800 mg tablet 800 mg PO TID PRN (Reason: fever or pain) Qty: 30 0RF lorazepam [Ativan] 1 mg tablet 1 mg PO QHSPRN PRN (Reason: agitation/sleep) Qty: 10 0RF lorazepam [Ativan] 1 mg tablet 1 mg PO BID PRN (Reason: agitation) Qty: 10 0RF pseudoephedrine HCl [Sudafed] 30 mg tablet 30 mg PO Q12HR Qty: 14 0RF ibuprofen [IBU] 800 mg tablet 800 mg PO Q6H PRN (Reason: pain) Qty: 30 0RF amoxicillin-pot clavulanate 875-125 mg tablet 1 tab PO BID Qty: 14 0RF ibuprofen 800 mg tablet 800 mg PO TID PRN (Reason: pain) Qty: 20 0RF diazepam [Valium] 5 mg tablet 5 mg PO BID MDD 2 PRN (Reason: anxiety) Qty: 7 0RF alprazolam [Xanax] 0.5 mg tablet 0.5 mg PO BID PRN (Reason: anxiety) Qty: 10 0RF hydrocodone-acetaminophen 5-325 mg tablet 1 tab PO Q6H MDD 4 tabs per day PRN (Reason: pain) Qty: 10 0RF Problem List Clinical Impression: Panic disorder Patient/Caregiver Discharge Instructions Additional Instructions: please follow up with your pcp in the next 24-48hrs for worsening symptoms re turn immediately Print Language: Turkmen Stand Alone Forms: Libby Award Info., Patient Portal Info Letter PA/SEAFOOD TECHNOLOGY SPECIALIST Supervising Physician PA/SEAFOOD TECHNOLOGY SPECIALIST Supervising Physician: dr correa
== END 2025-03-19 06:24 | disposition home or self-care (01) ==
LOC: SERX 06:25
PROVIDERS: Emergency Provider Emergency Medicine
DX: F41.0 Panic disorder [episodic paroxysmal anxiety] (principal)
CPT/HCPCS: 99282; A9270

== ENCOUNTER 2025-04-28 08:08 | Emergency (ER) | payer MEDICAID, SELFPAY ==
[2025-04-28 08:09] VITALS: BMI 27.8
[2025-04-28 08:16] VITALS: BP 134/90; PULSE 92; RESP 19; TEMP 36.9; O2SAT 97
--- NOTE | 2025-04-28 08:20 | EKG_ITS ---
[facility] Test Date: 2025-04-28 Pat Name: PHONG HATCH Department: Room: - Gender: Male Nib Inspector: : 1980 Requested By: Jj Farah (TIMUR) Order Number: [id number] Reading MD: Jj Farah (BUFFING MACHINE OPERATOR SEMIAUTOMATIC) Measurements Intervals [place] Rate: 78 P: 51 OH: 129 QRS: 62 QRSD: 104 T: 3 QT: 371 QTc: 423 Interpretive Statements SINUS RHYTHM NONSPECIFIC T-WAVE ABNORMALITY No previous ECG available for comparison /store/[email or web address]/[id number].pdf
--- NOTE | 2025-04-28 08:20 | XR_ITS ---
Examination: PA lateral chest 2 views TECHNIQUE: Upright PA lateral chest 2 views Date and time: April 28, 2025 0851 hours INDICATIONS: Chest pain today. FINDINGS: Normal heart size. Lungs are clear. The osseous structures are intact. IMPRESSION: No active disease.
--- NOTE | 2025-04-28 09:30 | PC.NURSE ---
MESSAGE LEFT FOR DR. BILLY TO READ XRAY
[2025-04-28 09:50] LABS: Basophils # (Auto) 0.0 Thou/mm3 (0.0-0.2); Basophils % (Auto) 0 % (0-2.5); Eosinophils # (Auto) 0.2 Thou/mm3 (0.0-0.5); Eosinophils % (Auto) 2 % (0-10); Hematocrit 43.0 % (41.0-53.0); Hemoglobin 14.1 g/dL (13.5-16.0); Immature Granulocytes Auto 0.04 Thou/mm3 (0.00-0.00); Lymphocytes # (Auto) 2.4 Thou/mm3 (1.0-4.8); Lymphocytes % (Auto) 23 % (10-50); Mean Corpuscular HGB Conc 32.8 g/dl (31.0-37.0); Mean Corpuscular Hemoglobin 29.2 pg (25.0-35.0); Mean Corpuscular Volume 89 fL (80-100); Monocytes # (Auto) 0.8 Thou/mm3 (0.0-0.8); Monocytes % (Auto) 8 % (0-12); Neutrophils # (Auto) 7.0 Thou/mm3 (1.8-7.7); Neutrophils % (Auto) 67 % (37-80); Nucleated Red Blood Cell # 0.00 Thou/mm3 (0.00-0.00); Nucleated Red Blood Cell % 0 /100 WBC (0); Platelet Count 319 Thou/mm3 (140-440); RDW Standard Deviation 44.5 fL (35.1-43.9); Red Blood Count 4.83 Miln/mm3 (4.50-5.90); White Blood Count 10.3 Thou/mm3 (3.8-10.6)
[2025-04-28 10:07] LABS: Alanine Aminotransferase 18 U/L (10-49); Albumin, Serum 4.8 gm/dL (3.5-5.0); Albumin/Globulin Ratio 1.4 (1.2-2.2); Alkaline Phosphatase 95 U/L (46-116); Anion Gap 7 (7-16); Aspartate Amino Transferase 26 U/L (0-34); BUN/Creatinine Ratio 17 Ratio (12-20); Bilirubin,Total 0.4 mg/dL (0.3-1.2); Blood Urea Nitrogen 15 mg/dL (9-23); Calcium 10.7 mg/dL (8.3-10.6); Calcium (Corrected) 10.7 mg/dL (8.5-10.1); Carbon Dioxide 32.0 mMol/L (20.0-31.0); Chloride 99 mMol/L (98-107); Creatinine (Component) 0.9 mg/dL (0.6-1.3); Estimated Creatinine Clearance 120.7 mL/min (>60); Globulin 3.4 gm/dL (2.3-3.5); Glucose 101 mg/dL (74-106); Osmolality,Calculated 276 (275-295); Potassium 5.0 mMol/L (3.4-5.1); Sodium 138 mMol/L (136-145); Total Protein 8.2 gm/dL (5.7-8.2); Troponin I < 0.020 ng/mL (0.0-0.045); eGFR > 60 See Note
--- NOTE | 2025-04-28 10:38 | PD.EDADULT ---
ED General RME/HPI General Chief complaint: General Adult/Misc Complain Stated complaint: SMOKED METH AND DON'T FEEL GOOD Time Seen by Provider: 04/28/25 08:23 Arrival date/time: 04/28/25 08:08 44-year-old male presents to the emergency department today stating that he smoked methamphetamine this morning reports it was just a small amount but reports he does not feel good today patient reports he has been doing well and has not used meth in over 4 months. Limitations: no limitations Related Data Previous Rx's ?Medication ?Instructions ?Recorded amoxicillin 875 mg-potassium 1 tab PO Q12H #14 tabs 08/19/19 clavulanate 125 mg tablet (Augmentin) ibuprofen 800 mg tablet 800 mg PO Q6H PRN pain #10 tabs 08/19/19 lorazepam 0.5 mg tablet (Ativan) 0.5 mg PO QDAY #10 tabs 08/01/21 lorazepam 1 mg tablet (Ativan) 1 mg PO QHSPRN PRN agitation/sleep 08/08/22 #10 tabs lorazepam 1 mg tablet (Ativan) 1 mg PO BID PRN agitation #10 tabs 12/10/22 IBU 800 mg tablet (ibuprofen) 800 mg PO Q6H PRN pain #30 tabs 07/20/23 pseudoephedrine HCl 30 mg tablet 30 mg PO Q12HR #14 tabs 07/20/23 (Sudafed) amoxicillin 875 mg-potassium 1 tab PO BID #14 tabs 12/25/23 clavulanate 125 mg tablet ibuprofen 800 mg tablet 800 mg PO TID PRN pain #20 tabs 12/25/23 diazepam 5 mg tablet (Valium) 5 mg PO BID PRN anxiety #7 tabs 04/02/24 hydroxyzine HCl 25 mg tablet 25 mg PO TID PRN anxiety #20 tabs 04/05/24 acetaminophen 500 mg capsule 500 mg PO Q6H PRN pain #30 caps 10/25/24 ibuprofen 800 mg tablet 800 mg PO TID PRN fever or pain 10/25/24 #30 tabs alprazolam 0.5 mg tablet (Xanax) 0.5 mg PO BID PRN anxiety #10 tabs 01/30/25 hydrocodone 5 mg-acetaminophen 325 1 tab PO Q6H PRN pain #10 tabs 02/04/25 mg tablet hydroxyzine HCl 50 mg tablet 50 mg PO TID PRN nausea and 03/19/25 vomiting #30 tabs Allergies Allergy/AdvReac Type Severity Reaction Status Date / Time No Known Allergies Allergy Unknown Verified 04/28/25 08:10 Review of Systems Review of Systems Systems Reviewed: All systems reviewed, normal except as documented Constitutional Constitutional: Reports system reviewed and no additional complaints, except as documented, Denies fever(s) and Denies headache(s) Eyes Eyes: Reports system reviewed and no additional complaints, except as documented and Denies blurry vision ENT Ears, Nose, Mouth, and Throat: Reports system reviewed and no additional complaints, except as documented, Denies headache(s), Denies nasal congestion and Denies nasal discharge Cardiovascular Cardiovascular: Reports system reviewed and no additional complaints, except as documented, Denies chest pain and Denies dyspnea Respiratory Respiratory: Reports system reviewed and no additional complaints, except as documented, Denies chest congestion, Denies cough and Denies dyspnea Gastrointestinal Gastrointestinal: Reports system reviewed and no additional complaints, except as documented and Denies abdominal pain Integumentary/Breasts Skin/Breast: Reports system reviewed and no additional complaints, except as documented and Denies rash Neurologic Neurologic: Reports system reviewed and no additional complaints, except as documented, Reports as per HPI and Denies headache(s) Psychiatric Psychiatric: Reports system reviewed and no additional complaints, except as documented and Reports anxiety Past Medical History Past Medical History NEUROLOGIC: Negative Neurological Disorders CARDIAC: Negative Cardiac Disorders or Congestive Heart Failure RESPIRATORY: Negative Chronic Obstructive Pulmonary Disease (COPD) GASTROINTESTINAL: Positive Gastrointestinal Disorders and Gastroesophageal Reflux Disease GENITOURINARY: Negative Genitourinary Disorders or Renal Disease MUSCULOSKELETAL: Negative Musculoskeletal Disorders ENDOCRINE: Negative Endocrine Disorders, Diabetes Mellitus Type 1 or Diabetes Mellitus Type 2 HEMATOLOGIC: Negative Blood Disorders Social History SMOKING STATUS: Current some day smoker SUBSTANCE USE: methamphetamine ED Exam General Limitations: Present no limitations General appearance: Present alert and in no apparent distress Head Head exam: Present atraumatic Eye Eye exam: Present normal appearance, PERRL and EOMI; Absent conjunctival injection ENT ENT exam: Present normal exam, normal oropharynx and mucous membranes moist Neck Neck exam: Present normal inspection, full ROM and trachea midline Chest Chest inspection: Present normal inspection and symmetric chest wall rise Respiratory Respiratory exam: Present normal lung sounds bilaterally; Absent respiratory distress Cardiovascular Cardiovascular exam: Present regular rate, normal rhythm and normal heart sounds Abdominal Exam Abdominal exam: Present soft and normal bowel sounds; Absent distention, tenderness, guarding, rebound or rigidity Extremities Exam Extremities exam: Present normal inspection and full ROM Back Exam Back exam: Present normal inspection and full ROM Neurological Exam Neurological exam: Present alert, oriented X3, CN II-XII intact, normal gait and reflexes normal; Absent motor sensory deficit Skin Skin exam: Present warm, dry, intact and normal color Course Quality Measures none Orders Category Date Time Status EKG (ED ONLY) *Do not use* NOW Care 04/28/25 08:20 Completed EKG (ED Only) Stat Exams 04/28/25 08:20 Draft XR chest 2V Stat Exams 04/28/25 08:20 Completed CBC Stat Lab 04/28/25 09:34 Completed Comprehensive Metabolic Panel Stat Lab 04/28/25 09:34 Completed Troponin I Stat Lab 04/28/25 09:34 Completed Vital Signs Vital signs: Vital Signs Temperature 98.4 F 04/28/25 08:16 Pulse Rate 92 04/28/25 08:16 Respiratory Rate 19 04/28/25 08:16 Blood Pressure 134/90 H 04/28/25 08:16 Pulse Oximetry (%) 97 04/28/25 08:16 Oxygen Delivery Method Room Air 04/28/25 08:16 O2 saturation 97% room air with normal limits PROCEDURES: EKG Interpretation #1: Date of EK04/28/25 Time of EK:26 Rate: 78 Interpretation: Interpreted by me EKG Impression: Normal sinus rhythm, No acute ST-T changes, No ectopy, No ischemic changes, Normal QRS, Normal intervals and Normal axis Discharge Plan Plan Patient Disposition: HOME (Self Care) Discharge Disposition comment: Stable Prescriptions/Referrals Prescriptions/Med Rec: No Action lorazepam [Ativan] 0.5 mg tablet 0.5 mg PO QDAY Qty: 10 0RF amoxicillin-pot clavulanate [Augmentin] 875-125 mg tablet 1 tab PO Q12H Qty: 14 0RF ibuprofen 800 mg tablet 800 mg PO Q6H PRN (Reason: pain) Qty: 10 0RF hydroxyzine HCl 25 mg tablet 25 mg PO TID PRN (Reason: anxiety) Qty: 20 0RF acetaminophen 500 mg capsule 500 mg PO Q6H PRN (Reason: pain) Qty: 30 0RF ibuprofen 800 mg tablet 800 mg PO TID PRN (Reason: fever or pain) Qty: 30 0RF hydroxyzine HCl 50 mg tablet 50 mg PO TID PRN (Reason: nausea and vomiting) Qty: 30 0RF lorazepam [Ativan] 1 mg tablet 1 mg PO QHSPRN PRN (Reason: agitation/sleep) Qty: 10 0RF lorazepam [Ativan] 1 mg tablet 1 mg PO BID PRN (Reason: agitation) Qty: 10 0RF pseudoephedrine HCl [Sudafed] 30 mg tablet 30 mg PO Q12HR Qty: 14 0RF ibuprofen [IBU] 800 mg tablet 800 mg PO Q6H PRN (Reason: pain) Qty: 30 0RF amoxicillin-pot clavulanate 875-125 mg tablet 1 tab PO BID Qty: 14 0RF ibuprofen 800 mg tablet 800 mg PO TID PRN (Reason: pain) Qty: 20 0RF diazepam [Valium] 5 mg tablet 5 mg PO BID MDD 2 PRN (Reason: anxiety) Qty: 7 0RF alprazolam [Xanax] 0.5 mg tablet 0.5 mg PO BID PRN (Reason: anxiety) Qty: 10 0RF hydrocodone-acetaminophen 5-325 mg tablet 1 tab PO Q6H MDD 4 tabs per day PRN (Reason: pain) Qty: 10 0RF Referrals: No Primary/Family,Physician [Primary Care Provider] - 04/29/25 Problem List Clinical Impression: Methamphetamine abuse Patient/Caregiver Discharge Instructions Education Materials: Treating Drug Abuse and Addiction Additional Instructions: Please follow up with your primary care doctor in the next 24-48hrs for any worsening symptoms return here immediately Print Language: Malaysian Stand Alone Forms: Libby Award Info., Patient Portal Info Letter PA/PHOSPHORIC ACID SUPERVISOR Supervising Physician PA/PHOSPHORIC ACID SUPERVISOR Supervising Physician: dr lawrence EDUARDO Narrative MDM hospital course: 44-year-old male presents to the emergency department today stating that he smoked methamphetamine this morning reports it was just a small amount but reports he does not feel good today patient reports he has been doing well and has not used meth in over 4 months. On exam patient well-appearing patient does not appear ill or toxic no acute distress Lab work imaging and EKG obtained no acute emergent findings noted Patient discharged home in no distress to follow-up with primary care doctor in the next 24 to 48 hours and for any worsening symptoms to return to the ER immediately` Clinical Information Provided by patient Medical Records Reviewed [facility] Meds/Rx Considered, not Ordered None Labs/Rad/Tests considered, not Ordered None Chronic Illness/Social Conditions which may negatively complicate care or outcome(s)-explain: None or not applicable EKG EKG not done Lab Interpretation Labs: none Imaging Imaging interpretation: none Medication Administration(s) none Diagnosis Differential diagnosis: Anxiety, depression abuse Differential dx and/or dx ruled out: Drug abuse Most likely dx, and/or detailed dx discussion: Abuse Dispositon Disposition: Discharge Home
[2025-04-28 10:45] VITALS: BP 122/78; PULSE 68; RESP 18; TEMP 36.7; O2SAT 98
== END 2025-04-28 10:46 | disposition home or self-care (01) ==
PROVIDERS: Nurse Practitioner Primary Care; Emergency Provider Family Medicine
DX: F15.10 Other stimulant abuse, uncomplicated (principal)
CPT/HCPCS: 36415; 71046; 80053; 84484; 85025; 93005; 99283

== ENCOUNTER 2025-07-07 14:21 | Emergency (ER) | payer MEDICAID, SELFPAY ==
[2025-07-07 14:22] VITALS: BMI 27.8
[2025-07-07 14:46] VITALS: BP 153/95; PULSE 100; RESP 18; TEMP 36.8; O2SAT 95
--- NOTE | 2025-07-07 15:10 | EDNOTE_ITS ---
ED Male Genitalurinary RME/HPI General Chief complaint: Urogenital-Male Stated complaint: GENITAL RASH Time Seen by Provider: 07/07/25 14:26 Arrival date/time: 07/07/25 14:21 45-year-old male with medical history significant for methamphetamine abuse presents to the Emergency Department today complaints of redness/rash to the tip of his penis patient reports he was having intercourse and developed erythema/redness to the tip of his penis Limitations: no limitations Related Data Previous Rx's ?Medication ?Instructions ?Recorded amoxicillin 875 mg-potassium 1 tab PO Q12H #14 tabs clavulanate 125 mg tablet (Augmentin) ibuprofen 800 mg tablet 800 mg PO Q6H PRN pain #10 t abs 08/19/19 lorazepam 0.5 mg tablet (Ativan) 0.5 mg PO QDAY #10 ta bs 08/01/21 lorazepam 1 mg tablet (Ativan) 1 mg PO QHSPRN PRN agit ation/sleep 08/08/22 #10 tabs lorazepam 1 mg tablet (Ativan) 1 mg PO BID PRN agitati on #10 tabs 12/10/22 IBU 800 mg tablet (ibuprofen) 800 mg PO Q6H PRN pain # 30 tabs 07/20/23 pseudoephedrine HCl 30 mg tablet 30 mg PO Q12HR #14 ta bs 07/20/23 (Sudafed) amoxicillin 875 mg-potassium 1 tab PO BID #14 tabs 10/18 clavulanate 125 mg tablet ibuprofen 800 mg tablet 800 mg PO TID PRN pain #20 t abs 12/25/23 diazepam 5 mg tablet (Valium) 5 mg PO BID PRN anxiety #7 tabs 04/02/24 hydroxyzine HCl 25 mg tablet 25 mg PO TID PRN anxiety #20 tabs 04/05/24 acetaminophen 500 mg capsule 500 mg PO Q6H PRN pain #3 0 caps 10/25/24 ibuprofen 800 mg tablet 800 mg PO TID PRN fever or p ain 10/25/24 #30 tabs alprazolam 0.5 mg tablet (Xanax) 0.5 mg PO BID PRN anx iety #10 tabs 01/30/25 hydrocodone 5 mg-acetaminophen 325 1 tab PO Q6H PRN pa in #10 tabs 02/04/25 mg tablet hydroxyzine HCl 50 mg tablet 50 mg PO TID PRN nausea a nd 03/19/25 vomiting #30 tabs hydrocortisone 0.5 % topical cream 1 applic topical BI D PRN itching 07/07/25 #28.4 grams ibuprofen 800 mg tablet 800 mg PO TID PRN pain #30 t abs 07/07/25 Allergies Allergy/AdvReac Type Severity Reaction Status Date / Time No Known Allergies Allergy Unknown Verified 07/07/25 14:23 Review of Systems Review of Systems Systems Reviewed: All systems reviewed, normal except as documented Constitutional Constitutional: Reports system reviewed and no additional complaints, except as documented, Denies fever(s) and Denies headache(s) Eyes Eyes: Reports system reviewed and no additional complaints, except as documented and Denies blurry vision ENT Ears, Nose, Mouth, and Throat: Reports system reviewed and no additional complaints, except as documented, Denies headache(s), Denies nasal congestion and Denies nasal discharge Cardiovascular Cardiovascular: Reports system reviewed and no additional complaints, except as documented, Denies chest pain and Denies dyspnea Respiratory Respiratory: Reports system reviewed and no additional complaints, except as documented, Denies chest congestion, Denies cough and Denies dyspnea Gastrointestinal Gastrointestinal: Reports system reviewed and no additional complaints, except as documented and Denies abdominal pain Integumentary/Breasts Skin/Breast: Reports system reviewed and no additional complaints, except as documented and Denies rash Neurologic Neurologic: Reports system reviewed and no additional complaints, except as documented, Reports as per HPI and Denies headache(s) Past Medical History Past Medical History NEUROLOGIC: Negative Neurological Disorders CARDIAC: Negative Cardiac Disorders or Congestive Heart Failure RESPIRATORY: Negative Chronic Obstructive Pulmonary Disease (COPD) GASTROINTESTINAL: Positive Gastrointestinal Disorders and Gastroesophageal Reflux Disease GENITOURINARY: Negative Genitourinary Disorders or Renal Disease MUSCULOSKELETAL: Negative Musculoskeletal Disorders ENDOCRINE: Negative Endocrine Disorders, Diabetes Mellitus Type 1 or Diabetes Mellitus Type 2 HEMATOLOGIC: Negative Blood Disorders Social History SMOKING STATUS: Current some day smoker SUBSTANCE USE: methamphetamine ED Exam General Limitations: Present no limitations General appearance: Present alert and in no apparent distress Head Head exam: Present atraumatic, normocephalic and normal inspection Eye Eye exam: Present normal appearance, PERRL and EOMI; Absent conjunctival injection ENT ENT exam: Present normal exam, normal oropharynx and mucous membranes moist Neck Neck exam: Present normal inspection, full ROM and trachea midline Chest Chest inspection: Present normal inspection and symmetric chest wall rise; Absent tenderness Respiratory Respiratory exam: Present normal lung sounds bilaterally; Absent respiratory distress, wheezes, stridor, accessory muscle use or prolonged expiratory phase Cardiovascular Cardiovascular exam: Present regular rate, normal rhythm and normal heart sounds Abdominal Exam Abdominal exam: Present soft and normal bowel sounds; Absent distention, tenderness, guarding, rebound, rigidity, Mitchell's sign, Rovsing's sign or tenderness at McBurney's Point Abdominal tenderness: Absent RUQ or RLQ exam: Present other (Erythema to the penis); Absent circumcised Extremities Exam Extremities exam: Present normal inspection and full ROM Back Exam Back exam: Present normal inspection and full ROM Neurological Exam Neurological exam: Present alert, oriented X3 and CN II-XII intact Psychiatric Psychiatric exam: Present normal affect and normal mood Skin Skin exam: Present warm, dry, intact and normal color Course Quality Measures none Vital Signs Vital signs: Vital Signs Temperature 98.2 F 07/07/25 14:46 Pulse Rate 100 07/07/25 14:46 Respiratory Rate 18 07/07/25 14:46 Blood Pressure 153/95 H 07/07/25 14:46 Pulse Oximetry (%) 95 07/07/25 14:46 Oxygen Delivery Method Room Air 07/07/25 14:46 02 sat 95% r.a wnl Urogenital - Male MDM Narrative MDM Narrative:: 45-year-old male with medical history significant for methamphetamine abuse presents to the Emergency Department today complaints of redness/rash to the tip of his penis patient reports he was having intercourse and developed erythema/redness to the tip of his penis On exam patient is mild erythema tip of the penis Patient has no evidence of STD Patient be treated with hydrocortisone and ibuprofen Explained to the patient states symptoms persist or worsen he should have STD testing and further evaluation with PCP Patient data External records reviewed:: [facility] previous records Clinical information provided by:: patient Social determinants that could affect healthcare access:: none Patient has the following chronic illnesses:: None How is presenting disease/condition affected by chronic disease/condition?: no chronic disease Evaluation data The following diagnostics were reviewed and interpreted by me:: other (specify) (N/A) Lab and/or radiology exams considered but not ordered:: Considered not indicated Interpretation Summary: N/A Medications / Prescriptions Medications or Prescriptions considered but not ordered:: Rx given Medication administrations:: Rx given Consultations Consultation(s) initiated? (list below): No Diagnosis Urogenital Male Differential Diagnosis: other Most likely diagnosis given after review of the tests above:: Cellulitis, abscess, erythema Admission Indicated Admission indicated?: not indicated Admission Request Was there a request for admission?: No Disposition Plan Disposition Plan: Discharge Discharge Attestation Discharge Attestation: The patient and all family members were given an opportunity to ask questions and understood the discharge instructions. Discharge instructions specifically effects, indications for sooner follow up or return to the emergency department, and the expected course of current diagnosis. Patient condition: Stable Discharge Plan Plan Patient Disposition: HOME (Self Care) Discharge Disposition comment: Stable Prescriptions/Referrals Prescriptions/Med Rec: New ibuprofen 800 mg tablet 800 mg PO TID PRN (Reason: pain) Qty: 30 0RF hydrocortisone 0.5 % cream 1 applic topical BID PRN (Reason: itching) Qty: 28.4 0RF No Action lorazepam [Ativan] 0.5 mg tablet 0.5 mg PO QDAY Qty: 10 0RF amoxicillin-pot clavulanate [Augmentin] 875-125 mg tablet 1 tab PO Q12H Qty: 14 0RF ibuprofen 800 mg tablet 800 mg PO Q6H PRN (Reason: pain) Qty: 10 0RF hydroxyzine HCl 25 mg tablet 25 mg PO TID PRN (Reason: anxiety) Qty: 20 0RF acetaminophen 500 mg capsule 500 mg PO Q6H PRN (Reason: pain) Qty: 30 0RF ibuprofen 800 mg tablet 800 mg PO TID PRN (Reason: fever or pain) Qty: 30 0RF hydroxyzine HCl 50 mg tablet 50 mg PO TID PRN (Reason: nausea and vomiting) Qty: 30 0RF lorazepam [Ativan] 1 mg tablet 1 mg PO QHSPRN PRN (Reason: agitation/sleep) Qty: 10 0RF lorazepam [Ativan] 1 mg tablet 1 mg PO BID PRN (Reason: agitation) Qty: 10 0RF pseudoephedrine HCl [Sudafed] 30 mg tablet 30 mg PO Q12HR Qty: 14 0RF ibuprofen [IBU] 800 mg tablet 800 mg PO Q6H PRN (Reason: pain) Qty: 30 0RF amoxicillin-pot clavulanate 875-125 mg tablet 1 tab PO BID Qty: 14 0RF ibuprofen 800 mg tablet 800 mg PO TID PRN (Reason: pain) Qty: 20 0RF diazepam [Valium] 5 mg tablet 5 mg PO BID MDD 2 PRN (Reason: anxiety) Qty: 7 0RF alprazolam [Xanax] 0.5 mg tablet 0.5 mg PO BID PRN (Reason: anxiety) Qty: 10 0RF hydrocodone-acetaminophen 5-325 mg tablet 1 tab PO Q6H MDD 4 tabs per day PRN (Reason: pain) Qty: 10 0RF Problem List Clinical Impression: Abrasion of penis Patient/Caregiver Discharge Instructions Education Materials: ED Abrasions Additional Instructions: Please follow up with your primary care doctor in the next 24-48hrs for any worsening symptoms return here immediately Print Language: Honduran Stand Alone Forms: [employer] Award Info., Patient Portal Info Letter PA/ETHYLBENZENE CRACKING SUPERVISOR Supervising Physician PA/ETHYLBENZENE CRACKING SUPERVISOR Supervising Physician: Dr bravo
== END 2025-07-07 15:35 | disposition home or self-care (01) ==
LOC: SERX 15:32
PROVIDERS: Emergency Provider Nurse Practitioner Primary Care
DX: S30.812A Abrasion of penis, initial encounter (principal); X58.XXXA Exposure to other specified factors, initial encounter
CPT/HCPCS: 99281